=== PATIENT | female | born 1960 | race Two or more races ===

== ENCOUNTER 2017-12-26 10:12 | Outpatient (CLI) | payer OTHER | END 2017-12-26 10:27 | disposition home or self-care (01) | LOC: MAMO-SONO 10:12 | DX: Z12.31 Encounter for screening mammogram for malignant neoplasm of breast (principal); N60.11 Diffuse cystic mastopathy of right breast ==

== ENCOUNTER 2018-03-11 05:30 | Day surgery (SDC) | payer OTHER ==
[~2018-03-11 05:30] MED LIST: CLONAZEPAM2 M1; HYZAAR 100-251 EACH; SYNTHROID 25MG; SYNTHROID200 MCG; TOPROL XL50 MG
[2018-03-11] MEDS ORDERED: PERCOCET 5-3251 EACH PO (10:19)
[2018-03-11] MEDS ORDERED: NEURONTIN300 MG PO (10:21)
[2018-03-11] MEDS ORDERED: POLY119PG PO (10:21)
== END 2018-03-11 11:55 | disposition home or self-care (01) ==
LOC: CIR.AMB 05:30
DX: K43.0 Incisional hernia with obstruction, without gangrene (principal)

== ENCOUNTER 2019-02-25 11:44 | Outpatient (CLI) | payer OTHER ==
[~2019-02-25 11:44] MED LIST changes: +NEURONTIN300 MG PO; +PERCOCET 5-3251 EACH PO; +POLY119PG PO
== END 2019-02-25 11:52 | disposition home or self-care (01) ==
LOC: MAMO-SONO 11:44
DX: Z12.31 Encounter for screening mammogram for malignant neoplasm of breast (principal); Z87.898 Personal history of other specified conditions; N60.11 Diffuse cystic mastopathy of right breast

== ENCOUNTER 2020-09-14 12:55 | Outpatient (CLI) | payer OTHER | END 2020-09-14 13:06 | disposition home or self-care (01) | LOC: MAMO-SONO 12:55 | PROVIDERS: ATTEND Obstetrics & Gynecology | DX: D64.9 Anemia, unspecified (principal); Z12.31 Encounter for screening mammogram for malignant neoplasm of breast ==

== ENCOUNTER 2021-12-03 09:44 | Outpatient (CLI) | payer OTHER | END 2021-12-03 09:47 | disposition home or self-care (01) | LOC: NUCLEAR 09:44 | DX: M81.0 Age-related osteoporosis without current pathological fracture (principal); E03.8 Other specified hypothyroidism ==

== ENCOUNTER 2021-12-03 11:00 | Outpatient (CLI) | payer OTHER | END 2021-12-03 11:18 | disposition home or self-care (01) | LOC: MAMO-SONO 11:00 | PROVIDERS: ATTEND Obstetrics & Gynecology | DX: N60.11 Diffuse cystic mastopathy of right breast (principal); E03.8 Other specified hypothyroidism; M81.0 Age-related osteoporosis without current pathological fracture ==

== ENCOUNTER 2022-01-25 12:26 | Outpatient (CLI) | payer OTHER | END 2022-01-25 12:36 | disposition home or self-care (01) | LOC: PPH VACUNA 12:26 | PROVIDERS: ATTEND Emergency Medicine Pediatric Emergency Medicine | DX: Z23 Encounter for immunization (principal) ==

== ENCOUNTER 2022-01-25 12:26 | Outpatient (CLI) | payer OTHER | END 2022-01-25 12:36 | disposition home or self-care (01) | LOC: PPH VACUNA 12:26 | PROVIDERS: ATTEND Emergency Medicine Pediatric Emergency Medicine | DX: Z23 Encounter for immunization (principal) ==

== ENCOUNTER → 2023-05-20 | Outpatient (CLI) | payer OTHER | END | disposition home or self-care (01) | LOC: MAMO-SONO 10:02 | PROVIDERS: ATTEND Obstetrics & Gynecology | DX: E03.8 Other specified hypothyroidism (principal); M81.0 Age-related osteoporosis without current pathological fracture; N60.11 Diffuse cystic mastopathy of right breast ==

== ENCOUNTER 2024-07-15 10:51 | Outpatient (CLI) | payer OTHER | END 2024-07-15 11:02 | disposition home or self-care (01) | LOC: MAMO-SONO 10:51 | PROVIDERS: ATTEND Obstetrics & Gynecology Maternal & Fetal Medicine | DX: N60.11 Diffuse cystic mastopathy of right breast (principal); E03.9 Hypothyroidism, unspecified ==